=== PATIENT | male | born 1995 | race Caucasian/White ===

== ENCOUNTER 2017-08-25 22:50 | Emergency (ER) | payer OTHER ==
[~2017-08-25] VITALS: Ht 177.8 cm; Wt 69.8 kg
[2017-08-25] MEDS ORDERED: NOHOMEMEDICATIONS (23:05)
[2017-08-25] MEDS ORDERED: IBU600 MG PO (23:24)
[2017-08-25] MEDS ORDERED: MEDROLDOSEPACK PO (23:24)
[2017-08-25 23:31] VITALS: BP 120/51
== END 2017-08-25 23:31 | disposition home or self-care (01) ==
LOC: M.ERS 22:50
DX: S29.012A Strain of muscle and tendon of back wall of thorax, initial encounter (principal); M94.0 Chondrocostal junction syndrome [Tietze]; F17.200 Nicotine dependence, unspecified, uncomplicated; X50.0XXA Overexertion from strenuous movement or load, initial encounter; Y93.89 Activity, other specified; Y92.89 Other specified places as the place of occurrence of the external cause; Y99.8 Other external cause status

== ENCOUNTER 2019-07-07 05:54 | Emergency (ER) | payer OTHER ==
[~2019-07-07] VITALS: Ht 175.3 cm; Wt 77.1 kg
[~2019-07-07 05:54] MED LIST: IBU600 MG PO; MEDROLDOSEPACK PO; NOHOMEMEDICATIONS
[2019-07-07 07:16] VITALS: BP 129/66
== END 2019-07-07 07:18 | disposition home or self-care (01) ==
LOC: M.ERS 05:54
DX: S69.81XA Other specified injuries of right wrist, hand and finger(s), initial encounter (principal); X58.XXXA Exposure to other specified factors, initial encounter; Y93.89 Activity, other specified; Y92.89 Other specified places as the place of occurrence of the external cause; Y99.8 Other external cause status